=== PATIENT | female | born 1960 | race Two or more races ===

== ENCOUNTER 2016-09-26 11:56 | Day surgery (SDC) | payer OTHER ==
[~2016-09-26] VITALS: Ht 162.6 cm; Wt 72.7 kg
[~2016-09-26 11:56] MED LIST: FLUO20TA25 PO; FLUO40CA2 PO; HYDR-3138 PO; OXYC-302 PO; PREG50CA PO; TRAM50TA2 PO; [UNRECOGNIZED DRUG - CODE] PO
[2016-09-26] MEDS ORDERED: LACTATED RINGERS 1,000 ML IV SCH (12:23)
[2016-09-26 12:26] VITALS: BP 111/76
[2016-09-26] MEDS ORDERED: FENTANYL PF 100 MCG/2ML ONE ×2 (13:45→15:32)
[2016-09-26] MEDS ORDERED: MIDAZOLAM 1 MG/ML, 2ML ONE (13:45)
[2016-09-26] MEDS ORDERED: LABETALOL 5MG/ML, 20ML IV PRN (14:00)
[2016-09-26] MEDS ORDERED: OXYcodone 5 MG/5 ML ORAL.SOL UDC PO PRN (14:00)
[2016-09-26] MEDS ORDERED: hydrALAzine 20 MG/ML, 1ML IV PRN (14:00)
[2016-09-26] MEDS ORDERED: ONDANSETRON 2MG/ML, 2ML IVPush PRN (14:00)
[2016-09-26] MEDS ORDERED: MIDAZOLAM 1 MG/ML, 2ML IV PRN (14:00)
[2016-09-26] MEDS ORDERED: PROMETHAZINE 25 MG/ML, 1ML IV PRN (14:00)
[2016-09-26] MEDS ORDERED: HYDROmorphone 1 MG/ML, 1ML IV PRN (14:00)
[2016-09-26] MEDS ORDERED: MEPERIDINE/PF 25MG/0.5ML IVPush PRN (14:00)
[2016-09-26] MEDS ORDERED: ACETAMINOPHEN 325 MG TABLET PO PRN (14:00)
[2016-09-26] MEDS ORDERED: METOCLOPRAMIDE 5 MG/ML, 2ML IV PRN (14:00)
[2016-09-26] MEDS ORDERED: OMNIPAQUE 350 MG/ML, 50 ML BOTTLE ONE (15:10)
[2016-09-26] MEDS ORDERED: INDOMETHACIN 50 MG SUPP.RECT PR STA (15:12)
[2016-09-26] MEDS ORDERED: MEPERIDINE/PF 25MG/0.5ML ONE (15:17)
[2016-09-26] MEDS ORDERED: INDOMETHACIN 50 MG SUPP.RECT ONE (15:18)
[2016-09-26] MEDS: FENTANYL PF 100 MCG/2ML IV PRN ×2 (15:35→15:48)
[2016-09-26] MEDS ORDERED: ROCURONIUM 10 MG/ML ONE (15:51)
[2016-09-26] MEDS ORDERED: ONDANSETRON 2MG/ML, 2ML ONE (15:51)
[2016-09-26] MEDS ORDERED: DEXAMETHASONE 4 MG/ML, 1ML ONE (15:51)
[2016-09-26] MEDS ORDERED: PROPOFOL 10 MG/ML, 20ML ONE (15:51)
[2016-09-26] MEDS ORDERED: SUCCINYLCHOLINE 20 MG/ML, 10ML ONE (15:51)
[2016-09-26] MEDS ORDERED: ONDANSETRON ODT 4 MG PO PRN ×2 (16:30→17:00)
[2016-09-26] MEDS ORDERED: OXYcodone/APAP 5/325MG TABLET PO PRN ×2 (16:30)
[2016-09-26] MEDS ORDERED: ONDANSETRON ODT 4 MG ONE (16:38)
== END 2016-09-26 18:20 | disposition home or self-care (01) ==
LOC: OUT 11:56
PROVIDERS: ATTEND Internal Medicine Gastroenterology
DX: K80.50 Calculus of bile duct without cholangitis or cholecystitis without obstruction (principal); K83.1 Obstruction of bile duct; F32.9 Major depressive disorder, single episode, unspecified; F41.9 Anxiety disorder, unspecified
CPT/HCPCS: 43262; 43264; 74328; C1769; J0330; J1100; J2175; J2250; J2405; J2704; J3010; Q0162; Q9967